=== PATIENT | female | born 1935 | race Hispanic/Latino ===

== ENCOUNTER 2018-07-05 08:43 | Day surgery (SDC) | payer MEDICARE ==
[~2018-07-05] VITALS: Ht 157.5 cm; Wt 45.4 kg
[2018-07-05] VITALS (8 sets, daily range): BP systolic 82–120; BP diastolic 30–66
[~2018-07-05 08:43] MED LIST: ACET250T28 PO; AMLO2.5T4 PO; APIX5TAB PO; CETI5TAB12 PO; DEXL60CA3 PO; FAMO40TA7 PO; LOSA100T58 PO; SODIUM CHLORIDE 0.9% 1000ML 1,000 ML IV ONE; SOTA80TA PO
[2018-07-05] MEDS ORDERED: LEVO50TA11 PO (10:23)
== END 2018-07-05 12:12 | disposition home or self-care (01) ==
LOC: DAH 08:43 → ENDO 08:43
PROVIDERS: ATTEND Internal Medicine
DX: D12.8 Benign neoplasm of rectum (principal); K57.30 Diverticulosis of large intestine without perforation or abscess without bleeding; K64.0 First degree hemorrhoids; Z86.010 Personal history of colon polyps; I10 Essential (primary) hypertension; Z86.73 Personal history of transient ischemic attack (TIA), and cerebral infarction without residual deficits; F41.9 Anxiety disorder, unspecified; F32.9 Major depressive disorder, single episode, unspecified; M81.0 Age-related osteoporosis without current pathological fracture; Z85.3 Personal history of malignant neoplasm of breast; I48.91 Unspecified atrial fibrillation; Z79.899 Other long term (current) drug therapy; Z98.890 Other specified postprocedural states; Z98.49 Cataract extraction status, unspecified eye; Z88.8 Allergy status to other drugs, medicaments and biological substances; K21.9 Gastro-esophageal reflux disease without esophagitis
CPT/HCPCS: 45385; 82948; 88305; 93005; A4606; J7030